=== PATIENT | male | born 1985 ===

== ENCOUNTER 2017-08-24 14:31 | Outpatient (CLI) | payer OTHER | END 2017-08-24 14:32 | disposition home or self-care (01) | LOC: BICRAD 14:31 | PROVIDERS: ATTEND Nurse Practitioner Family | DX: R10.84 Generalized abdominal pain (principal); R10.13 Epigastric pain; R10.31 Right lower quadrant pain; R11.0 Nausea; R19.7 Diarrhea, unspecified | CPT/HCPCS: 74018 ==